=== PATIENT | female | born 1965 | race Two or more races ===

== ENCOUNTER 2024-07-01 05:40 | Day surgery (SDC) | payer MEDICAID, SELFPAY ==
--- NOTE | 2024-06-30 11:57 | EKG_ITS ---
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
[2024-06-30 12:03] VITALS: BMI 30.4
--- NOTE | 2024-06-30 13:22 | ESHP_ITS ---
RE: STEVEN STARK : 1965 DATE OF ADMISSION: 06/30/2024 The patient came to my office on 06/30/2024 for detailed preop history and physical examination. HISTORY OF PRESENT COMPLAINT: The patient presented to me with history of pain, swelling, clicking, and locking of the right knee joint. Pain is quite bad. The patient graded intensity of pain to be 9. There is a history of locking. There is no history of giving way. Quality of life and activities of daily living is affected. The patient wants something to be done about it. PAST MEDICAL HISTORY: The patient is prediabetic. No history of high blood pressure, asthma, seizure, chest pain, myocardial infarction, or bleeding disorder. PAST SURGICAL HISTORY: Left foot surgery 3 years back and left knee surgery 20 years back. DRUG HISTORY: The patient is on 1. Atorvastatin. 2. Tramadol. 3. Estradiol. ALLERGIES: PATIENT IS ALLERGIC TO PENICILLIN. FAMILY HISTORY AND SOCIAL HISTORY: The patient denies smoking, drinking, and is not working. PHYSICAL EXAMINATION: GENERAL: Normal-built lady. VITAL SIGNS: Pulse 76 per minute, blood pressure 138/76. NECK: Soft, supple. No mass felt. Trachea is centrally placed. CARDIOVASCULAR SYSTEM: First and second heart sounds are normal. No murmur heard. RESPIRATORY SYSTEM: Bilateral vesicular breath sounds. CHEST: Clear. ABDOMEN: Soft. No mass felt. Bowel sounds present. BREASTS: Not indicated in this case. The patient is advised to see the family physician for regular examination. EXTREMITIES: Right knee examination revealed mild swelling. There is 2+ tenderness. Active range of motion is 0 to 115 degrees of flexion. Arnulfo's test is positive. Drawer test and Magdaleno test were negative. Neurovascularly, it is intact. DIAGNOSTIC DATA: MRI scan revealed torn meniscus with DJD and increased joint fluid with synovitis. Since the patient was symptomatic, therefore, right knee arthroscopy was discussed and advised. Risks with anesthesia were explained and that includes, but not limited to reaction to anesthetic agents, cardiac arrest and rarely, it might be fatal. Risks with operation includes infection and if that happens, the patient will need further surgical procedure. Other risks include delayed healing, wound dehiscence, etc. No guarantee is given regarding outcome of the procedure and/or relief of symptoms. Indeed, if one finds a grade IV chondromalacia, there is a possibility that the patient may continue having short and/or long-term pain and the patient may need further surgical procedure. The patient is fully aware of that. Surgery is booked for 07/01/2024. Appropriate lab work is done. DT: 12:40:34 TT: 13:20:00 Ref: [id number] - TID: [id number]
[2024-06-30 13:23] LABS: Basophils % (Auto) 1 % (0-2.5); Eosinophils # (Auto) 0.2 Thou/mm3 (0.0-0.5); Eosinophils % (Auto) 4 % (0-10); Hematocrit 39.7 % (36.0-46.0); Hemoglobin 13.5 g/dL (12.0-16.0); Immature Granulocytes % (Auto) 0 % (0-0); Immature Granulocytes Auto 0.01 Thou/mm3 (0.00-0.00); Lymphocytes # (Auto) 1.7 Thou/mm3 (1.0-4.8); Lymphocytes % (Auto) 27 % (10-50); Mean Corpuscular Hemoglobin 31.4 pg (25.0-35.0); Mean Corpuscular Volume 92 fL (80-100); Monocytes # (Auto) 0.4 Thou/mm3 (0.0-0.8); Monocytes % (Auto) 6 % (0-12); Neutrophils # (Auto) 3.9 Thou/mm3 (1.8-7.7); Neutrophils % (Auto) 62 % (37-80); Nucleated Red Blood Cell % 0 /100 WBC (0); Platelet Count 223 Thou/mm3 (140-440); RDW Standard Deviation 43.4 fL (36.4-46.3); White Blood Count 6.3 Thou/mm3 (3.6-11.0)
[2024-06-30 13:40] LABS: INR 0.9 (0.9-1.3); Partial Thromboplastin Time 26.9 Seconds (22.0-36.0); Prothrombin Time 10.3 Seconds (9.0-12.2)
[2024-06-30 13:43] LABS: Alanine Aminotransferase 36 U/L (10-49); Albumin, Serum 4.1 gm/dL (3.5-5.0); Albumin/Globulin Ratio 1.9 (1.2-2.2); Alkaline Phosphatase 82 U/L (46-116); Anion Gap 10 (7-16); Aspartate Amino Transferase 30 U/L (0-34); BUN/Creatinine Ratio 22 Ratio (12-20); Bilirubin,Total 0.3 mg/dL (0.3-1.2); Blood Urea Nitrogen 24 mg/dL (9-23); Calcium 8.6 mg/dL (8.3-10.6); Calcium (Corrected) 8.6 mg/dL (8.5-10.1); Carbon Dioxide 27.4 mMol/L (20.0-31.0); Chloride 106 mMol/L (98-107); Creatinine (Component) 1.1 mg/dL (0.6-1.3); Estimated Creatinine Clearance 56.5 mL/min (>60); Globulin 2.2 gm/dL (2.3-3.5); Glucose 119 mg/dL (74-106); Osmolality,Calculated 289 (275-295); Potassium 3.8 mMol/L (3.4-5.1); Sodium 143 mMol/L (136-145); Total Protein 6.3 gm/dL (5.7-8.2); eGFR 58 See Note
[2024-07-01] VITALS (9 sets, daily range): BP systolic 130–146; BP diastolic 74–96; PULSE 59–85; RESP 12–16; TEMP 36.1–36.6; O2SAT 95–100; BMI 28.9
[2024-07-01] MEDS: RINGERS LACTATED 1000 ML 1,000 ML 20 ML IV (06:48)
--- NOTE | 2024-07-01 09:11 | PD.SUROPNT ---
Date of Procedure 07/01/24 Pre Op Diagnosis 1. Torn medial meniscus right knee joint 2. Torn lateral meniscus 3. DJD 4. Synovitis with medial plica and medial shelf Post Op Diagnosis Same Procedure 1. Partial medial meniscectomy 2. Partial lateral meniscectomy 3 chondroplasty 4. Partial synovectomy including excision plica and shelf Findings Refer dictation Procedure Description The patient was given general endotracheal anesthesia. Once satisfactory anesthesia was achieved, tourniquet was placed on right upper thigh. Following that the part was thoroughly prepped and draped. After using Esmarch the tourniquet pressure was raised to 350 mmHg. A skin incision was made proximal to lateral tibial plateau and arthroscope was introduced in the usual fashion. Another a skin incision was made in suprapatellar pouch area and outlet was established. The findings were noted as below. In suprapatellar pouch area significant synovial tissue inflammation was present. Medial plica was present as well. The undersurface of patella showed grade 3 chondromalacia. The anterior femoral condyle showed grade 3 chondromalacia. Soft tissue impingement was present. Medial shelf was present the patellar tracking was checked and found to be good. The medial compartment showed grade 3 chondromalacia for medial tibial plateau and medial femoral condyle. The medial meniscus showed degeneration and tear of the anterior horn. Another skin incision was made proximal to medial tibial plateau and a probe was introduced and findings were confirmed. The anterior cruciate ligament was partially torn.. The anterior drawer test was performed and found to be good. With the help of probe the integrity was tested and found to be good. Okay you are taking right now yeah yeah okay just yeah I will finish just 1 minute The lateral compartment showed grade III chondromalacia lateral femoral condyle and tibial plateau. Lateral meniscus showed degeneration and tear of the body and anterior horn. A shaver was introduced and shaving of the anterior horn of medial meniscus was performed. Soft tissue impingement was shaved off. Chondroplasty of the medial femoral condyle and medial tibial plateau was performed. A basket was introduced in the lateral compartment and torn part of the body and junction of the body and anterior horn of lateral meniscus was excised. The shaving of the body and anterior horn of lateral meniscus was done. Chondroplasty of the lateral tibial plateau and femoral condyle was performed. The chondroplasty of the patella and and anterior femoral condyle was performed. The soft tissue impingement was shaved off. Medial shelf was excised. A partial synovectomy including excision of plica was performed. Copious amount of irrigation was used to irrigate the knee joint. All the debris were removed. 3-0 Prolene was used to close the wound. About 20 mL of quarter percent Marcaine along with 10 mg of Duramorph was injected. Patient tolerated procedure well. Estimated blood loss was about 5 mL. Prognosis in this case is guarded. Because of significant chondromalacia and all the compartment there is possibility patient may continue having short and or long-term pain and patient is fully aware of that. If that happens patient may need further surgical procedure patient was taken to the recovery room in good condition. Anesthesia GETA Pathology / specimen None Estimated Blood Loss 2 Surgeon Lokesh Pretty MD Surgical Staff Operation Date: 07/01/24 07:30 Case Staff Anesthesiologist: Freddie Lopez
--- NOTE | 2024-07-01 09:18 | SUR.PHASEI ---
0918 Patient arrived to recovery resting in [place], drowsy and talking with staff, breathing unlabored, vital signs stable, dressing intact to right knee; adaptic, fluffs, abd, bias roll, silk tape, no bleeding noted, endorsed pain; anesthesia provider is medication patient for pain, report received from Pablo TAVARES and Keven HOFFMAN
--- NOTE | 2024-07-01 09:45 | SUR.PHASEI ---
0945 Verbal order read-back received from Dr. Sukhwinder Heredia 5mg oral tab for pain, will enter order in EMR and administer per MD order
[2024-07-01] MEDS: fentaNYL CIT INJ 50 mCg/ML AMP 2ML IVP (09:50)
[2024-07-01] MEDS: HYDROcodone/APAP 5/325 TABLET 1 TAB PO (09:53)
--- NOTE | 2024-07-01 10:45 | SUR.PHASEII ---
1045 Patient meets discharge criteria from recovery, awake and alert, breathing unlabored, vital signs stable, per patient her pain is tolerable-given pain pill, dressing intact; no bleeding noted, patient assisted with dressing into her clothing by this teletypewriter installer, denies nausea, discharge instructions given with the assistance of the telephone tax professional Mya ID# [id number] to patient and her , signed discharge instructions. Patient given all her belongings prior to discharge, transported via wheelchair and left in a private vehicle.
== END 2024-07-01 10:45 | disposition home or self-care (01) ==
PROVIDERS: Anesthesiology; PCP Physician Assistant Medical; Referring Provider Orthopaedic Surgery; Visit Provider Orthopaedic Surgery
PROC: (CPT 29870; principal; 2024-07-01 07:30)
DX: S83.281A Other tear of lateral meniscus, current injury, right knee, initial encounter (principal); S83.241A Other tear of medial meniscus, current injury, right knee, initial encounter; M17.11 Unilateral primary osteoarthritis, right knee; M65.90 Unspecified synovitis and tenosynovitis, unspecified site; Z01.810 Encounter for preprocedural cardiovascular examination; E78.5 Hyperlipidemia, unspecified; E11.9 Type 2 diabetes mellitus without complications
CPT/HCPCS: 29880; 29875; 36415; 80053; 85025; 85610; 85730; 93005; A4217; A4649; J0131; J0690; J1100; J1885; J2250; J2270; J2405; J2704; J3010; J3490; J7120; A9270; J0665